=== PATIENT | male | born 1955 | race Caucasian/White ===

== ENCOUNTER 2020-05-10 11:16 | Emergency (ER) | payer BC ==
[2020-05-10] MEDS ORDERED: Sodium Chloride 0.9% 10 ML Syringe FLUSH PRN (11:24)
--- NOTE | 2020-05-10 11:49 | CT ---
[id number] CT/CT Head Stroke Protocol EXAM: NONCONTRAST HEAD CT INDICATION: STROKE CODE. LEFT FACE/ARM PARESTHESIA. COMPARISON: None. DISCUSSION: The ventricles and sulci are normal in size and configuration. The [place]illan and white matter are normal in attenuation. No mass effect or midline shift. No acute hemorrhage or extra-axial fluid collection. No acute territorial infarct is identified. A limited look at the orbits and paranasal sinuses is unremarkable. Results called at time dictation. IMPRESSION: 1. Negative exam. Suresh Raymundo MD 05/10/20 [id number] Thank you for allowing us to participate in the care of your patient.
[2020-05-10 11:54] LABS: PTT,PARTIAL THROMBOPLSTIN TIME 26.3 SEC (25.6-32.8)
[2020-05-10 12:02] LABS: CHLORIDE,CL 102 mmol/L (98-107); SODIUM,NA 139 mmol/L (136-145)
[2020-05-10 12:08] LABS: ANION GAP 13.1 mmol/L (5-15)
[2020-05-10] MEDS ORDERED: Iopamidol 612 MG/ML 100 ML Bottle IVPUSH ONE (12:34)
--- NOTE | 2020-05-10 13:04 | EDM.PDOC ---
ED HPI GENERAL MEDICAL PROBLEM - General Stated Complaint: STROKE Time Seen by Provider: 05/10/20 11:16 Source of Information: Reports: Patient History Limitations: Reports: No Limitations - History of Present Illness INITIAL COMMENTS - FREE TEXT/NARRATIVE: Patient comes emergency department today with complaints of paresthesias to his left face and his left arm. Starting at approximately 9:00 this morning the patient had a what he relates his numbness sensation to the lateral aspect of his left arm and his left face. He has no headache no recent falls or head injury. 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 On Friday about 4 days ago he had another episode where he was confused and did not know what was going on this lasted for short period of time a couple of minutes and then resolved on its own. Today he woke up and he was absolutely asymptomatic. Suddenly at 9:00 he had the paresthesias of his left arm and his left face. He took 3 full dose aspirins and came to the emergency department. Upon arrival he still complains of the paresthesias the left arm and his left face. No headache no visual acuity changes. He has had some palpitations last couple of days but no syncope. He has no chest pain no shortness of breath or difficulty breathing. No cough or congestion. No other weakness dizziness vertigo lightheadedness. No abdominal pain no nausea or vomiting. No fever no chills. He is able to ambulate and operate his vehicle without difficulty. He denies any confusion. He is actually from the [facility] area here on a work related trip. No COVID exposure no COVID symptoms. No history of hypertension. Does have a history of hypercholesteremia. Denies any history of diabetes. He was a tobacco user many years ago. Onset: Today Onset Time: 09:00 ED ROS GENERAL - Review of Systems Review Of Systems: Comprehensive ROS is negative, except as noted in HPI. ED EXAM, NEURO - Physical Exam Exam: See Below Exam Limited By: No Limitations General Appearance: Alert, WD/WN, No Apparent Distress Eye Exam: Bilateral Eye: EOMI, Normal Inspection, PERRL Ears: Normal External Exam, Normal TMs Nose: Normal Inspection, Normal Mucosa, No Blood Throat/Mouth: Normal Inspection, Normal Lips, Normal Teeth, Normal Gums, Normal Oropharynx, Normal Voice, No Airway Compromise Head Exam: Atraumatic, Normocephalic Neck: Normal Inspection, Supple, Non-Tender, Full Range of Motion Respiratory/Chest: No Respiratory Distress, Lungs Clear, Normal Breath Sounds, No Accessory Muscle Use, Chest Non-Tender Cardiovascular: Normal Peripheral Pulses, Regular Rate, Rhythm, No JVD, No Murmur, No Rub GI/Abdominal: Normal Bowel Sounds, Non-Tender, Pelvis Stable (Male) Exam: Deferred Rectal (Males) Exam: Deferred Neurological: Alert, Normal Mood/Affect, Normal Dorsiflexion, CN II-XII Intact, Normal Plantar Flexion, Normal Gait, Normal Reflexes, No Motor/Sensory Deficits, Oriented x 3, Other (NIH is 0. ) DTR: 2+: Bicep (R), Bicep (L), Patella (R), Patella (L), Achilles (R), Achilles (L) Back Exam: Normal Inspection, Full Range of Motion Extremities: Normal Inspection, Normal Range of Motion, Non-Tender, Normal Capillary Refill Psychiatric: Normal Affect, Normal Mood Skin Exam: Warm, Dry, Intact, Normal Color, No Rash Course - Orders/Labs/Meds Orders: Active Orders 24 hr Category Date Time Status Accu Check [Blood Glucose Check, Bedside] [RC] ONETIME Care 05/10/20 11:25 Active EKG Documentation Completion [RC] STAT Care 05/10/20 11:24 Active Sodium Chloride 0.9% [Saline Flush] Med 05/10/20 11:24 Active 10 ml FLUSH ASDIRECTED PRN Peripheral IV Insertion Adult [OM.PC] Stat Oth 05/10/20 11:24 Ordered Medication Orders Sodium Chloride (Saline Flush) 10 ml FLUSH ASDIRECTED PRN PRN Reason: Keep Vein Open Labs: Laboratory Tests 05/10/20 05/10/20 05/10/20 Range/Units 11:23 11:26 11:26 WBC 4.0 (4.0-10.0) x10^3/uL RBC 4.45 L (4.5-6.0) x10^6/uL Hgb 14.4 (14.0-18.0) g/dL Hct 41.9 (40.0-52.0) % MCV 94.2 H (78.0-93.0) fL MCH 32.4 H (26.0-32.0) pg MCHC 34.4 (32.0-36.0) g/dL RDW Coeff of [place] 12.3 (10.0-15.0) % Plt Count 285 (130-400) x10^3/uL Neut % (Auto) 54.3 (50.0-80.0) % Lymph % (Auto) 34.8 (25.0-50.0) % [place] % (Auto) 8.8 (2.0-11.0) % Eos % (Auto) 1.8 (0.0-4.0) % Baso % (Auto) 0.3 (0.2-1.2) % PT 10.7 (9.9-12.5) SEC INR 1.0 L (2.0-3.5) APTT 26.3 (25.6-32.8) SEC Sodium (136-145) mmol/L Potassium (3.5-5.1) mmol/L Chloride (98-107) mmol/L Carbon Dioxide (21-32) mmol/L Anion Gap (5-15) mmol/L BUN (7-18) mg/dL Creatinine (0.70-1.30) mg/dL Est Cr Clr Drug Dosing Estimated GFR (MDRD) Glucose (74-106) mg/dL POC Glucose 80 (74-106) mg/dL Calcium (8.5-10.1) mg/dL Corrected Calcium (8.5-10.1) mg/dL Magnesium (1.8-2.4) mg/dL Total Bilirubin (0.2-1.0) mg/dL AST (15-37) U/L ALT (16-63) U/L Alkaline Phosphatase (46-116) U/L Troponin I (<=0.056) ng/mL C-Reactive Protein (<=0.9) mg/dL Total Protein (6.4-8.2) g/dL Albumin (3.4-5.0) g/dL Globulin Albumin/Globulin Ratio 05/10/20 Range/Units 11:26 WBC (4.0-10.0) x10^3/uL RBC (4.5-6.0) x10^6/uL Hgb (14.0-18.0) g/dL Hct (40.0-52.0) % MCV (78.0-93.0) fL MCH (26.0-32.0) pg MCHC (32.0-36.0) g/dL RDW Coeff of [place] (10.0-15.0) % Plt Count (130-400) x10^3/uL Neut % (Auto) (50.0-80.0) % Lymph % (Auto) (25.0-50.0) % [place] % (Auto) (2.0-11.0) % Eos % (Auto) (0.0-4.0) % Baso % (Auto) (0.2-1.2) % PT (9.9-12.5) SEC INR (2.0-3.5) APTT (25.6-32.8) SEC Sodium 139 (136-145) mmol/L Potassium 4.1 (3.5-5.1) mmol/L Chloride 102 (98-107) mmol/L Carbon Dioxide 28 (21-32) mmol/L Anion Gap 13.1 (5-15) mmol/L BUN 15 (7-18) mg/dL Creatinine 1.1 (0.70-1.30) mg/dL Est Cr Clr Drug Dosing TNP Estimated GFR (MDRD) > 60 Glucose 105 (74-106) mg/dL POC Glucose (74-106) mg/dL Calcium 8.8 (8.5-10.1) mg/dL Corrected Calcium 8.88 (8.5-10.1) mg/dL Magnesium 2.3 (1.8-2.4) mg/dL Total Bilirubin 0.6 (0.2-1.0) mg/dL AST 21 (15-37) U/L ALT 19 (16-63) U/L Alkaline Phosphatase 46 (46-116) U/L Troponin I < 0.017 (<=0.056) ng/mL C-Reactive Protein 0.2 (<=0.9) mg/dL Total Protein 7.3 (6.4-8.2) g/dL Albumin 3.9 (3.4-5.0) g/dL Globulin 3.4 Albumin/Globulin Ratio 1.15 Meds: Medications Generic Name Dose Route Start Last Admin Trade Name Freq PRN Reason Stop Dose Admin Sodium Chloride 10 ml 05/10/20 11:24 Saline Flush FLUSH ASDIRECTED PRN Keep Vein Open Discontinued Medications Generic Name Dose Route Start Last Admin Trade Name Cristino PRN Reason Stop Dose Admin Clopidogrel Bisulfate 75 mg 05/10/20 13:27 Plavix PO 05/10/20 13:28 ONETIME ONE Iopamidol 100 ml 05/10/20 12:34 Isovue-300 (61%) IVPUSH 05/10/20 12:35 ONETIME ONE - Radiology Interpretation Free Text/Narrative:: CT of the head per radiology shows negative exam. CTA head and neck per radiology shows no acute findings. Hard plaque at the bifurcation of the left carotid artery no significant stenosis dissection or aneurysmal dilation. - Re-Assessments/Exams Free Text/Narrative Re-Assessment/Exam: 05/10/20 Due to the patient's concerns of paresthesias to the left arm and left face upon arrival a stroke code was activated and the team was available shortly thereafter. He was brought emergently to the CAT scanner. EKG was completed with normal sinus rhythm without any ST elevation or depression. Laboratory evaluation was drawn. His NIH stroke scale is 0. His CT of his head was negative for any acute findings. CTA head neck was negative for any large vessel occlusion or high-grade stenosis. I called and spoke with Jose Khan the neurologist SALES ORDER ADMINISTRATOR at the stroke center at [facility]. HPI ER COURSE findings and concerns were relayed to her. Her questions were answered. She would like the patient started on Asa 81mg po daily as well as plavix 75mg daily and have a follow up in the stroke clinic at [facility] where he is from. While the patient was waiting for his results his paresthesias of his left arm and his left face has resolved. His repeat neurological evaluation still shows an NIH stroke scale of 0 his blood pressure is improved as well. He is resting comfortably on the cot without any complaints. I reviewed the CT scans laboratory evaluation and the concerns for a TIA with this patient. He was given 75 mg of Plavix orally he is already taken aspirin for today. I worked at length with [facility] in [place] to get a follow-up in the stroke clinic on either or Friday and a referral was sent to them as well. He clearly understands the discharge instructions. His questions were answered. A referral was faxed to the stroke center in [place]. As well as his laboratory evaluation and CT scans were also forwarded with him. Departure - Departure Time of Disposition: 13:28 Disposition: Home, Self-Care 01 Clinical Impression: TIA (transient ischemic attack) - Discharge Information Instructions: Transient Ischemic Attack, [id number] Additional Instructions: Start taking an 81mg ASPIRIN daily starting tomorrow. Also start Plavix 75mg daily start tomorrow as well. A hand written prescription was given to you. You need to follow up with the stroke center at [facility] in [place] or friday. Their number is [phone]. I will continue to work on getting this set up with them. Return to the ED if new or worsening symptoms. Follow up with [facility]rology Stroke Clinic in [place] this week. - My Orders Last 24 Hours: My Active Orders 05/10/20 11:24 EKG Documentation Completion [RC] STAT Sodium Chloride 0.9% [Saline Flush] 10 ml FLUSH ASDIRECTED PRN Peripheral IV Insertion Adult [OM.PC] Stat 05/10/20 11:25 Accu Check [Blood Glucose Check, Bedside] [RC] ONETIME - Assessment/Plan Last 24 Hours: My Active Orders 05/10/20 11:24 EKG Documentation Completion [RC] STAT Sodium Chloride 0.9% [Saline Flush] 10 ml FLUSH ASDIRECTED PRN Peripheral IV Insertion Adult [OM.PC] Stat 05/10/20 11:25 Accu Check [Blood Glucose Check, Bedside] [RC] ONETIME
--- NOTE | 2020-05-10 13:13 | CT ---
[id number] CT/CTA Head Neck EXAM: CT angiogram head and neck INDICATION: STROKE CODE. COMPARISON: Head CT same date. DISCUSSION: Aortic arch: The partially imaged aortic arch is normal in caliber with a conventional branching morphology. Right carotid artery: Normal in caliber. No significant stenosis or other abnormality. Left carotid artery: Hard plaque at the bifurcation. No significant stenosis, dissection or aneurysmal dilation. Right vertebral artery: Opacified veins mildly limits assessment. No stenosis, dissection or aneurysm is identified. Left vertebral artery: Opacified adjacent veins limit assessment. No stenosis, dissection or aneurysm is identified. Basilar artery: Small posterior circulation, likely congenital. [place]: Artifact somewhat limits assessment. origin of the left posterior cerebral artery. No large vessel cut off, aneurysm or other acute findings. Dural sinuses, jugular veins and cerebral veins: Limited evaluation of the cerebral veins, dural sinuses and jugular veins is unremarkable. Brain parenchyma: Unremarkable. The neck soft tissues: Unremarkable. Osseous structures: Moderate disc degeneration C5-C6 and C6-C7. IMPRESSION: 1. No acute findings. Suresh Raymundo MD 05/10/20 [id number] Thank you for allowing us to participate in the care of your patient.
[2020-05-10] MEDS ORDERED: Clopidogrel 75 MG Tab PO ONE (13:27)
== END 2020-05-10 13:45 | disposition home or self-care (01) ==
LOC: VM.ED 11:16
DX: G45.9 Transient cerebral ischemic attack, unspecified (principal)
CPT/HCPCS: 70450; 70496; 70498; 80053; 82962; 83735; 84484; 85025; 85610; 85730; 86140; 93005; 99284; 99284-25; A9270-GY